=== PATIENT | male | born 1950 | race Caucasian/White ===

== ENCOUNTER 2024-12-10 09:31 | Outpatient (CLI) | payer OTHER, SELFPAY | END 2024-12-10 09:32 | disposition home or self-care (01) | LOC: RAD 09:37 | PROVIDERS: PCP Chiropractor; Visit Provider Chiropractor | DX: I25.10 Atherosclerotic heart disease of native coronary artery without angina pectoris (principal); I51.7 Cardiomegaly | CPT/HCPCS: 93306 ==